=== PATIENT | male | born 1995 | race Caucasian/White ===

== ENCOUNTER → 2022-12-24 17:05 | Outpatient (CLI) | payer MEDICAID, SELFPAY ==
--- NOTE | 2022-12-24 17:11 | MR_ITS ---
PROCEDURE INFORMATION: Exam: MR Cervical Spine Without Contrast Exam date and time: 12/24/2022 5:11 PM Age: 27 years old Clinical indication: Neck pain; Additional info: Neck and back pain. Finger numbness bilateral hands. Headache TECHNIQUE: Imaging protocol: Magnetic resonance imaging of the cervical spine without contrast. COMPARISON: No relevant prior studies available. FINDINGS: Bones/joints: The cervical spinal alignment is near anatomic. The vertebral body heights are maintained. There is mild disc desiccation with loss of disc space height C3-C5. The marrow signal is normal. No acute osseous injury is present. Spinal cord: Normal signal. No cord compression. C2-C3: C2-C3 minimal right-sided uncovertebral joint osteophyte is seen without stenosis. C3-C4: C3-C4 bilateral uncovertebral joint osteophyte and subtle diffuse disc bulging is seen without stenosis of the spinal canal. There is mild narrowing of the right neural foramina present. C4-C5: C4-C5 minimal diffuse disc bulging and dorsal endplate osteophyte is seen without stenosis of the spinal canal. The right neural foramen is mildly narrowed. C5-C6: C5-C6 minimal uncovertebral joint osteophyte is seen without stenosis. C6-C7: No significant disc bulge or herniation. No severe spinal canal stenosis. No significant neural foraminal narrowing. C7-T1: No significant disc bulge or herniation. No severe spinal canal stenosis. No significant neural foraminal narrowing. Soft tissues: Unremarkable. Vasculature: Expected flow voids in the vertebral arteries. IMPRESSION: Minimal degenerative changes of the cervical spine, as described. No spinal canal stenosis. No high-grade neural foraminal compromise.
== END ==
PROVIDERS: PCP Emergency Medicine; Visit Provider Emergency Medicine
DX: M54.12 Radiculopathy, cervical region (principal)
CPT/HCPCS: 72141; 76376

== ENCOUNTER → 2023-02-11 08:58 | Outpatient (POV) | payer MEDICAID, SELFPAY ==
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
[2023-02-11 09:34] VITALS: BP 135/92; PULSE 91; RESP 20; O2SAT 99; BMI 29.9
== END | disposition home or self-care (01) ==
PROVIDERS: PCP Emergency Medicine; Visit Provider Nurse Practitioner Family
DX: M50.10 Cervical disc disorder with radiculopathy, unspecified cervical region (principal); M25.551 Pain in right hip; M25.511 Pain in right shoulder; M25.512 Pain in left shoulder
CPT/HCPCS: 99202; G0463

== ENCOUNTER → 2023-02-11 09:50 | Outpatient (CLI) | payer MEDICAID, SELFPAY ==
--- NOTE | 2023-02-11 09:56 | XR_ITS ---
FINAL REPORT CLINICAL HISTORY: LOW BACK PAIN COMPARISON: None FINDINGS: Five views of the lumbar spine were obtained. There is no evidence of fracture or dislocation. There is mild leftward curvature of the upper lumbar spine. Disc spaces are preserved. No paraspinous soft tissue abnormalities identified. IMPRESSION: No acute bony abnormality. Reviewed, Interpreted and Dictated by Gabriel Kaba III, MD Transcribed by Liza Zamora Authenticated and [facility]
== END ==
PROVIDERS: PCP Emergency Medicine; Visit Provider Nurse Practitioner Family
DX: M54.50 Low back pain, unspecified (principal)
CPT/HCPCS: 72110

== ENCOUNTER → 2023-03-25 15:15 | Outpatient (POV) | payer MEDICAID, SELFPAY ==
--- NOTE | 2023-03-25 15:22 | EXP.PAIN.SOA ---
[facility] Pain Management SOAP Note Subjective:: Patient is a pleasant 27-year-old male who presents today for 1 month follow-up. We are currently treating the patient for degenerative disc disease of cervical spine with cervical radiculopathy symptoms, bilateral shoulder pain, low back pain with lumbar radiculopathy symptoms, right hip pain, neck pain. Today he rates his pain a 6 out of 10. Patient states his pain is in his left thigh and left leg. He does describe this as a aching, throbbing sensation that started last night. He states that he did leave work early and feels like he may have just pulled a muscle. He also states he has been experiencing some left forearm numbness. Patient denies any specific trauma or injury at either of these pain locations. Patient denies any new trauma or injury from her last visit. At her last appointment we did prescribe him diclofenac 75 mg twice daily. 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 He states he had looked up some side effects and was worried.His Torsten is pending currently. Review of Systems: General: No recent weight changes, no fever, no sleep disturbances Respiratory: No cough, no shortness of air, no recurring pulmonary infections Cardiovascular/peripheral vascular: No chest pain, no palpitations, no edema, no shortness of breath Gastrointestinal: No new onset incontinence, normal bowel movements reported Genitourinary: No new onset incontinence Musculoskeletal: Left thigh, left leg pain, left arm numbness Psychiatric: [Normal mood/affect] Neurological: [Denies weakness in extremities], [denies balance issues] Objective:: Physical Exam: General: Alert and oriented x3, no acute distress, pleasant and cooperative Lungs: Respirations even and unlabored, symmetrical chest expansion Eyes: PERRL Musculoskeletal: Flexion and extension of lumbar [spine] somewhat guarded secondary to pain, [antalgic gait noted] Neurological: Speech clear, no gross sensory deficit FINDINGS: Five views of the lumbar spine were obtained.? There is no evidence of fracture or dislocation.? ? There is mild leftward curvature of the upper lumbar spine.? Disc spaces are preserved. No paraspinous soft tissue abnormalities identified. IMPRESSION: No acute bony abnormality. Reviewed, Interpreted and Dictated by Gabriel Kaba III, MD Transcribed by Liza Zamora Authenticated and [facility] Assessment:: Degenerative disc disease of cervical spine with cervical radiculopathy symptoms, neck pain, low back pain with lumbar radiculopathy symptoms, right hip pain, bilateral shoulder pain, left leg pain Plan:: I will order the patient a compounding cream at today's visit. I will also order MRI imaging of his lumbar spine without contrast. I will also order the patient methocarbamol 500 mg at bedtime and provide him 1 month supply of this medication. Patient will return to clinic in 1 month for reevaluation of symptoms and plan of care. Patient has been instructed to contact the clinic with any concerns before the next appointment. Dr. Chase has reviewed this note and agrees with this plan of care. This note was dictated using voice recognition software and make contain errors or omissions. [facility] Disclaimer: The information contained in this section may have been updated after the patient was seen, as this information can be updated by other users. Surgical History History of cholecystectomy Family History Family/Other Hypertension Family/Other Diabetes Social History Smoking Status: Current every day smoker alcohol intake: never current occupational status: employed Travel in the last 8 weeks: None
[2023-03-25 15:50] VITALS: BP 140/91; PULSE 74; RESP 18; O2SAT 97; BMI 30.1
== END | disposition home or self-care (01) ==
PROVIDERS: PCP Emergency Medicine; Visit Provider Nurse Practitioner Family
DX: M50.10 Cervical disc disorder with radiculopathy, unspecified cervical region (principal); M54.16 Radiculopathy, lumbar region; M79.605 Pain in left leg; M25.551 Pain in right hip; M25.511 Pain in right shoulder; M25.512 Pain in left shoulder
CPT/HCPCS: 99212; G0463

== ENCOUNTER → 2023-05-17 14:27 | Outpatient (CLI) | payer MEDICAID, SELFPAY ==
[2023-05-17 18:49] LABS: Basophils % 0.5 % (0.1-2.0); Eosinophils # 0.4 K/mm3 (0.0-0.4); Hemoglobin 14.2 g/dL (14.1-18.0); Lymphocytes # 2.1 K/mm3 (0.7-4.5); Lymphocytes % 41.7 % (10-50); Mean Corpuscular Volume 87.8 fl (80-94); Mean Platelet Volume 8.9 fl (7.4-10.4); Monocytes # 0.4 K/mm3 (0.1-1.0); Monocytes % 7.1 % (1.7-9.3); Neutrophils # 2.2 K/mm3 (1.8-7.8); Neutrophils % 43.6 % (37.0-80.0); Platelet Count 258 K/mm3 (142-424); Red Cell Distribution Width 12.7 % (11.5-17.5); White Blood Count 4.9 K/mm3 (4.8-10.8)
[2023-05-17 18:56] LABS: Alanine Aminotransferase 24 U/L (12-78); Albumin Level 4.2 g/dl (3.5-5.0); Albumin/Globulin Ratio 1.4 (1.1-1.8); Alkaline Phosphatase 67 U/L (38-126); Anion Gap 10.6 mEq/L (5-15); Aspartate Amino Transferase 24 U/L (17-59); Bilirubin,Total 0.3 mg/dl (0.2-1.3); Blood Urea Nitrogen 15 mg/dl (9-20); Carbon Dioxide 29 mmol/L (22.0-30.0); Chloride 104 mmol/L (98-107); Cholesterol 185 mg/dl (140-200); Estimated Glomerular Filt Rate 135 ml/min (>60); GFR (African American) 164 ML/MIN (>60); Globulin 2.9 g/dL (1.3-3.2); Glucose 105 mg/dl (74-100); HDL Cholesterol 37 mg/dl (40-60); Potassium 3.6 mmoL/L (3.5-5.1); Sodium 140 mmol/L (136-145); Total Protein,Serum 7.1 g/dl (6.3-8.2); Triglycerides 68 mg/dl (30-150); VLDL Cholesterol 14 mg/dL (0-40)
[2023-05-17 19:26] LABS: Thyroid Stimulating Hormone 4.08 uIU/mL (0.465-4.68)
== END ==
LOC: LAB.DROPOF 05-18 07:03
PROVIDERS: PCP Emergency Medicine; Visit Provider Emergency Medicine
DX: M79.2 Neuralgia and neuritis, unspecified (principal)
CPT/HCPCS: 80053; 80061; 83036; 84443; 85025

== ENCOUNTER 2023-11-10 12:06 | Outpatient (CLI) | payer MEDICAID, SELFPAY ==
[2023-11-10 16:09] LABS: Amphetamine/Metha Screen,Urine Negative ng/ml (<1000); Barbiturates Screen,Urine Negative ng/ml (<200); Benzodiazepines Screen,Urine Negative ng/ml (<200); Cannabinoid Screen,Urine Negative ng/ml (<50); Cocaine Screen,Urine Negative ng/ml (<300); Methadone Screen,Urine Negative ng/ml (<300); Opiate Screen,Urine Negative ng/ml (<300); Phencyclidine Screen,Urine Negative ng/ml (<25)
[2023-11-17 10:34] LABS: Gabapentin,Urine 163.3 ug/mL (.)
== END 2023-11-10 23:59 ==
LOC: LAB.DROPOF 12:08
PROVIDERS: PCP Family Medicine; Visit Provider Family Medicine
DX: Z79.899 Other long term (current) drug therapy (principal)
CPT/HCPCS: 80307

== ENCOUNTER 2024-03-15 14:16 | Outpatient (CLI) | payer MEDICAID, SELFPAY ==
--- NOTE | 2024-03-15 14:17 | MR_ITS ---
FINAL REPORT CLINICAL HISTORY: patient is unable to use hand, positive EMG/nerve FINDINGS: Multiplanar MR imaging of the cervical spine was performed without and with contrast. On the sagittal T2-weighted images, disc degeneration is seen at several levels. The vertebral alignment is normal. There is no evidence of fracture. No bony mass is identified. The cervical spinal cord has an unremarkable appearance without evidence of mass, edema or syrinx. There is no evidence of significant canal stenosis. C2-3: No significant canal stenosis or neural foraminal narrowing is identified. C3-4: Uncovertebral osteophytes are present with severe right and mild left neural foraminal narrowing. C4-5: An annular disc bulge and right uncovertebral osteophytes are present. There is moderate right and mild left neural foraminal narrowing. C5-6: Small central disc protrusion mildly indents the thecal sac. C6-7: No significant canal stenosis or neural foraminal narrowing is identified. C7-T1: Small uncovertebral osteophytes are present. No significant canal stenosis or neural foraminal narrowing is identified. No abnormal contrast enhancement is seen on the postcontrast images. IMPRESSION: Multilevel degenerative disc disease as described. Small central disc protrusion at C5-6 mildly indents the thecal sac. Reviewed, Interpreted and Dictated by Gabriel Kaba III, MD Transcribed by Rosangela Duckworth Authenticated and [facility]
[2024-03-15] MEDS: GADOTERIDOL INJ 17ML SYRINGE 21 ML IV (15:27)
== END 2024-03-15 23:59 | disposition home or self-care (01) ==
LOC: RAD 14:17
PROVIDERS: PCP Family Medicine; Visit Provider Family Medicine
DX: M54.2 Cervicalgia (principal); R20.0 Anesthesia of skin; R20.2 Paresthesia of skin; M54.12 Radiculopathy, cervical region; M62.89 Other specified disorders of muscle
CPT/HCPCS: 72156; A9576

== ENCOUNTER 2024-03-21 14:03 | Outpatient (CLI) | payer MEDICAID, SELFPAY ==
--- NOTE | 2024-03-21 14:08 | XR_ITS ---
FINAL REPORT CLINICAL HISTORY: right wrist pain FINDINGS: Right wrist Three views were obtained. There is no acute fracture or dislocation. The joint spaces appear normal. No soft tissue abnormality is identified. IMPRESSION: No acute process. Reviewed, Interpreted and Dictated by Jaime Avendano MD Transcribed by Rosangela Duckworth Authenticated and [facility]
== END 2024-03-21 23:59 | disposition home or self-care (01) ==
LOC: RAD 14:04
PROVIDERS: PCP Family Medicine; Visit Provider Orthopaedic Surgery
DX: M25.531 Pain in right wrist (principal); G56.01 Carpal tunnel syndrome, right upper limb
CPT/HCPCS: 73110

== ENCOUNTER 2024-05-08 11:24 | Outpatient (CLI) | payer MEDICAID, SELFPAY ==
[2024-05-08 18:01] LABS: Basophils % 0.6 % (0.1-2.0); Eosinophils # 0.2 K/mm3 (0.0-0.4); Eosinophils % 3.1 % (0.1-12.0); Hematocrit 44.3 % (42.0-52.0); Lymphocytes # 1.7 K/mm3 (0.7-4.5); Lymphocytes % 25.8 % (10-50); Mean Corpuscular HGB Conc 33.9 g/dL (31.8-35.4); Mean Corpuscular Hemoglobin 31.2 pg (27.0-31.2); Monocytes # 0.3 K/mm3 (0.1-1.0); Monocytes % 5.1 % (1.7-9.3); Neutrophils # 4.3 K/mm3 (1.8-7.8); Neutrophils % 65.5 % (37.0-80.0); Platelet Count 281 K/mm3 (142-424); Red Blood Count 4.82 M/mm3 (4.60-6.20); Red Cell Distribution Width 13.3 % (11.5-17.5); White Blood Count 6.5 K/mm3 (4.8-10.8)
[2024-05-08 19:38] LABS: Alanine Aminotransferase 21 U/L (12-78); Albumin Level 4.5 g/dl (3.5-5.0); Albumin/Globulin Ratio 1.5 (1.1-1.8); Alkaline Phosphatase 72 U/L (38-126); Anion Gap 12.8 mEq/L (5-15); Aspartate Amino Transferase 22 U/L (17-59); Bilirubin,Total 0.4 mg/dl (0.2-1.3); Blood Urea Nitrogen 10 mg/dl (9-20); Calcium 9.7 mg/dl (8.4-10.2); Carbon Dioxide 28 mmol/L (22.0-30.0); Chloride 104 mmol/L (98-107); Chol/HDL Ratio 4.6 (1-3.5); Cholesterol 195 mg/dl (140-200); Estimated Glomerular Filt Rate 134 ml/min (>60); GFR (African American) 162 ML/MIN (>60); Glucose 93 mg/dl (74-100); HDL Cholesterol 42 mg/dl (40-60); Potassium 3.8 mmoL/L (3.5-5.1); Sodium 141 mmol/L (136-145); Total Protein,Serum 7.5 g/dl (6.3-8.2); Triglycerides 107 mg/dl (30-150); VLDL Cholesterol 21 mg/dL (0-40)
[2024-05-08 20:02] LABS: 25-OH Vitamin D, Total < 12.8 ng/mL (30-100)
[2024-05-08 20:05] LABS: Direct LDL Cholesterol 117.47 mg/dL (100-129)
== END 2024-05-08 23:59 | disposition home or self-care (01) ==
LOC: LAB.DROPOF 05-09 11:25
PROVIDERS: PCP Family Medicine; Visit Provider Family Medicine
DX: R29.898 Other symptoms and signs involving the musculoskeletal system (principal); E66.3 Overweight; Z79.899 Other long term (current) drug therapy
CPT/HCPCS: 80050; 80053; 80061; 82306; 83036; 84443; 85025